=== PATIENT | male | born 1945 | race Caucasian/White ===

== ENCOUNTER 2016-08-13 12:19 | Emergency (ER) | payer MEDICARE, OTHER ==
[~2016-08-13 12:19] MED LIST: ALBUTEROL0.09 MG/A4 IH; ALEVE220 MG PO; CHILDREN'S ASPI81 M1 PO; CIPRODEX OT; COUMADIN 5MG5 MG/TAB PO; COUMADIN10 MG PO; ZYRTEC10 MG PO
[2016-08-13] MEDS ORDERED: XARELTO20 MG PO (12:53)
[2016-08-13] MEDS ORDERED: CEPHALEXIN500 M1 PO (12:54)
[2016-08-13] MEDS ORDERED: THEOPHYLLINE A300 M1 PO (12:54)
[2016-08-13 15:50] VITALS: BP 151/97
== END 2016-08-13 15:58 | disposition short-term general hospital (02) ==
LOC: ED 12:19
DX: R07.9 Chest pain, unspecified (principal); R06.02 Shortness of breath; I10 Essential (primary) hypertension

== ENCOUNTER → 2016-10-10 | Outpatient (CLI) | payer MEDICARE, OTHER ==
[~2016-10-10] MED LIST changes: +CEPHALEXIN500 M1 PO; +THEOPHYLLINE A300 M1 PO; +XARELTO20 MG PO
== END ==
LOC: RAD 15:00
DX: I48.91 Unspecified atrial fibrillation (principal); R06.02 Shortness of breath

== ENCOUNTER → 2017-11-13 | Outpatient (CLI) | payer MEDICARE, OTHER | LOC: RAD 09:00 | DX: N28.1 Cyst of kidney, acquired (principal) | CPT/HCPCS: Q9967 ==

== ENCOUNTER 2018-01-23 14:42 | Emergency (ER) | payer MEDICARE, OTHER ==
[~2018-01-23] VITALS: Ht 203.2 cm; Wt 99.1 kg
[2018-01-23 15:52] LABS: EOS # 0.2 (0.04-0.40); EOS % 3.2 % (0.0-4.0); HEMATOCRIT 48.6 % (42.0-52.0); HEMOGLOBIN 16.1 g/dL (13.5-18.0); MEAN CELL VOLUME 94 fl (78-100); MEAN CORPUSCULAR HEMOGLOBIN 31 pg (27-31); MEAN CORPUSCULAR HGB CONC 33 g/dL (33-37); MEAN PLATELET VOLUME 9.4 fl (7.4-10.4); MONO # 0.7 (0.20-0.80); NEU # 4.6 (1.40-6.50); PLATELET COUNT 181 K/mm3 (130-400); RED BLOOD COUNT 5.16 M/mm3 (4.20-5.60); RED CELL DISTRIBUTION WIDTH 13.5 % (11.5-14.5); WHITE BLOOD COUNT 6.5 K/mm3 (4.8-10.8)
[2018-01-23 16:05] LABS: ALBUMIN 4.4 g/dL (3.5-5.0); CALCIUM 10.5 mg/dL (8.4-10.2); POTASSIUM 4.7 mmol/L (3.6-5.0); TOTAL PROTEIN 7.7 g/dL (6.3-8.2)
[2018-01-23 18:33] LABS: URINE APPEARANCE CLEAR; URINE BILIRUBIN NEGATIVE (NEGATIVE); URINE BLOOD NEGATIVE (NEGATIVE); URINE COLOR YELLOW; URINE GLUCOSE NEGATIVE (NEGATIVE); URINE KETONE NEGATIVE (NEGATIVE); URINE LEUKOCYTE ESTERASE NEGATIVE (NEGATIVE); URINE NITRATE NEGATIVE (NEGATIVE); URINE PROTEIN(semi-quant) TRACE mg/dL (NEGATIVE); URINE UROBILINOGEN NORMAL (NORMAL)
[2018-01-23 18:34] LABS: URINE WBC 0-1 /hpf (0-3)
[2018-01-23 19:06] VITALS: BP 105/70
[2018-01-23] MEDS ORDERED: TYLENOL #21 TAB PO (19:22)
[2018-01-23] MEDS ORDERED: BROVANA15 MCG/2 M IH (19:23)
[2018-01-23] MEDS ORDERED: XARELTO20 MG PO (19:24)
[2018-01-23] MEDS ORDERED: THEOPHYLLINE A300 M1 PO (19:24)
== END 2018-01-23 19:06 | disposition home or self-care (01) ==
LOC: ED 14:42
PROVIDERS: Nurse Practitioner Primary Care
DX: F03.90 Unspecified dementia, unspecified severity, without behavioral disturbance, psychotic disturbance, mood disturbance, and anxiety (principal); M54.9 Dorsalgia, unspecified; K59.03 Drug induced constipation; T50.905A Adverse effect of unspecified drugs, medicaments and biological substances, initial encounter; J44.9 Chronic obstructive pulmonary disease, unspecified; Z86.711 Personal history of pulmonary embolism; Z79.01 Long term (current) use of anticoagulants; Z87.891 Personal history of nicotine dependence; Z79.899 Other long term (current) drug therapy

== ENCOUNTER 2018-03-02 08:24 | Emergency (ER) | payer MEDICARE, OTHER ==
[~2018-03-02] VITALS: Ht 177.8 cm; Wt 90.9 kg
[~2018-03-02 08:24] MED LIST changes: +BROVANA15 MCG/2 M IH; +TYLENOL #21 TAB PO
[2018-03-02] MEDS ORDERED: BROVANA15 MCG/2 M IH (09:37)
[2018-03-02] MEDS ORDERED: ALBUTEROL2.5 MG/3 M IH (09:38)
[2018-03-02] MEDS ORDERED: CEPHALEXIN500 M1 PO (09:38)
[2018-03-02] MEDS ORDERED: TYLENOL 500MG500 MG PO (09:39)
[2018-03-02] MEDS ORDERED: TYLENOL EXTRA500 M2 PO (09:39)
[2018-03-02] MEDS ORDERED: IBU600 MG PO (09:39)
[2018-03-02] MEDS ORDERED: SINGULAIR 110 MG/TAB PO (09:40)
[2018-03-02] MEDS ORDERED: PROAIR HFA0.09 MG/AC IH (09:40)
[2018-03-02] MEDS ORDERED: MIRALAX17 GM PO (09:40)
[2018-03-02 10:23] LABS: EOS # 0.3 (0.04-0.40); EOS % 4.7 % (0.0-4.0); HEMATOCRIT 47.2 % (42.0-52.0); HEMOGLOBIN 15.5 g/dL (13.5-18.0); LYMPH# 0.8 (1.50-4.00); MEAN CELL VOLUME 94 fl (78-100); MEAN CORPUSCULAR HEMOGLOBIN 31 pg (27-31); MEAN CORPUSCULAR HGB CONC 33 g/dL (33-37); MEAN PLATELET VOLUME 9.5 fl (7.4-10.4); MONO # 0.4 (0.20-0.80); NEU # 4.1 (1.40-6.50); PLATELET COUNT 155 K/mm3 (130-400); RED BLOOD COUNT 5.03 M/mm3 (4.20-5.60); RED CELL DISTRIBUTION WIDTH 13.9 % (11.5-14.5); WHITE BLOOD COUNT 5.5 K/mm3 (4.8-10.8)
[2018-03-02 10:29] LABS: ALBUMIN 4.2 g/dL (3.5-5.0); CALCIUM 10.6 mg/dL (8.4-10.2); POTASSIUM 4.5 mmol/L (3.6-5.0); TOTAL BILIRUBIN 0.8 mg/dL (0.2-1.3); TOTAL PROTEIN 7.1 g/dL (6.3-8.2)
[2018-03-02] MEDS ORDERED: CYCLOBENZAPRINE10 M1 PO (11:40)
[2018-03-02] MEDS ORDERED: PROTONIX TR40 M1 PO (11:40)
[2018-03-02 12:09] VITALS: BP 141/97
== END 2018-03-02 11:54 | disposition home or self-care (01) ==
LOC: ED 08:24
PROVIDERS: Nurse Practitioner Primary Care
DX: M54.32 Sciatica, left side (principal); R41.0 Disorientation, unspecified; I10 Essential (primary) hypertension; Z79.01 Long term (current) use of anticoagulants; Z79.899 Other long term (current) drug therapy; Z86.711 Personal history of pulmonary embolism; J98.6 Disorders of diaphragm
CPT/HCPCS: J1885; J2360

== ENCOUNTER 2018-03-13 21:39 | Emergency (ER) | payer MEDICARE, OTHER ==
[~2018-03-13 21:39] MED LIST changes: +ALBUTEROL2.5 MG/3 M IH; +CYCLOBENZAPRINE10 M1 PO; +IBU600 MG PO; +MIRALAX17 GM PO; +PROAIR HFA0.09 MG/AC IH; +PROTONIX TR40 M1 PO; +SINGULAIR 110 MG/TAB PO; +TYLENOL 500MG500 MG PO; +TYLENOL EXTRA500 M2 PO
[2018-03-13 21:50] VITALS: BP 131/78
[2018-03-14] MEDS ORDERED: PANTOPRAZOLE SO40 MG PO (01:56)
[2018-03-14] MEDS ORDERED: FLUTICASON0.05 MG/AC NS (01:56)
[2018-03-14] MEDS ORDERED: DOC-Q-LACE100 MG PO (01:56)
== END 2018-03-14 02:09 | disposition home or self-care (01) ==
LOC: ED 21:39
DX: R41.0 Disorientation, unspecified (principal); R29.818 Other symptoms and signs involving the nervous system; R00.0 Tachycardia, unspecified; Z86.711 Personal history of pulmonary embolism; Z79.01 Long term (current) use of anticoagulants; Z79.899 Other long term (current) drug therapy

== ENCOUNTER → 2018-03-14 | Outpatient (CLI) | payer MEDICARE, OTHER ==
[2018-03-13 21:50] VITALS: BP 131/78
[~2018-03-14] MED LIST changes: +DOC-Q-LACE100 MG PO; +FLUTICASON0.05 MG/AC NS; +PANTOPRAZOLE SO40 MG PO
[2018-03-14 17:32] LABS: URINE APPEARANCE CLEAR; URINE COLOR YELLOW; URINE GLUCOSE NEGATIVE (NEGATIVE); URINE PROTEIN(semi-quant) NEGATIVE (NEGATIVE)
[2018-03-14 17:33] LABS: URINE BILIRUBIN NEGATIVE (NEGATIVE); URINE BLOOD NEGATIVE (NEGATIVE); URINE KETONE NEGATIVE (NEGATIVE); URINE LEUKOCYTE ESTERASE NEGATIVE (NEGATIVE); URINE NITRATE NEGATIVE (NEGATIVE); URINE UROBILINOGEN NORMAL (NORMAL); URINE WBC 0-1 /hpf (0-3)
== END ==
LOC: LAB 14:45
PROVIDERS: Family Medicine
DX: R41.0 Disorientation, unspecified (principal); R29.818 Other symptoms and signs involving the nervous system